=== PATIENT | female | born 1950 | race African-American/Black ===

== ENCOUNTER 2016-08-22 01:24 | Emergency (ER) | payer BC, OTHER ==
[~2016-08-22] VITALS: Ht 162.6 cm; Wt 83.9 kg
--- NOTE | ~2016-08-22 | EKG ---
[facility] [place] [address] ELECTROCARDIOGRAM REPORT Name: SVETLANA HOBBS Room #: [facility] M.R.#: [id number] Admission: Attend Phys: Discharge: Date of : 54 Report #: [id number] THIS REPORT FOR: //name// [facility] ED Test Date: 2016-08-22 Test Time: 02:01:30 Pat Name: SVETLANA HOBBS Department: Room: Gender: F Senior Java Architect: [email or web address] : 1950 Requested By: Lucas Soto Order Number: [id number] MD: Measurements Intervals [place] Rate: 63 P: 62 ID: 178 QRS: -29 QRSD: 109 T: -12 QT: 427 QTc: 438 Interpretive Statements Sinus rhythm Abnormal R-wave progression, late transition Probable left ventricular hypertrophy Borderline T abnormalities, inferior leads No previous ECG available for comparison [email or web address] By: 020 020 Epiphany MD Gm /EPI
[2016-08-22 02:03] LABS: ABSOLUTE NEUTROPHILS 3.4 thou/uL (1.4-8.2); BASOPHILS 1.1 % (0.0-2.0); EOSINOPHILS 5.3 % (0.0-3.0); HEMATOCRIT 38.2 % (37.0-47.0); HEMOGLOBIN 12.5 gm/dL (12.0-15.0); MCH 25.9 pg (26.0-34.0); MCHC 32.7 g/dL (28.0-37.0); MCV 79.1 fL (80.0-100.0); MONOCYTES 9.5 % (1.0-8.0); PLATELET COUNT 268 thou/uL (150-400); POLYS 44.1 % (36.0-66.0); RBC 4.84 mil/uL (4.20-5.00); RDW 13.6 % (10.5-14.5); WBC 7.8 thou/uL (4.0-11.0)
[2016-08-22 02:07] LABS: MANUAL DIFF NO
[2016-08-22 02:28] LABS: ALBUMIN 3.5 g/dL (3.4-5.0); ALKALINE PHOSPHATASE 99 U/L (46-116); ANION GAP 11 mmol/L (7-16); BUN 11 mg/dL (7-18); CALCIUM 9.2 mg/dL (8.5-10.1); CHLORIDE 103 mmol/L (98-107); CK-MB MASS 0.6 ng/mL (<0.5-3.6); CO2 28 mmol/L (21-32); CREATININE 0.9 mg/dL (0.6-1.3); GLUCOSE 152 mg/dL (70-99); MAGNESIUM 1.5 mg/dL (1.8-2.4); NT-PRO BRAIN NAT PEPTIDE 148 pg/mL (<300); POTASSIUM 3.7 mmol/L (3.5-5.1); SGOT 17 U/L (15-37); SGPT 26 U/L (30-65); SODIUM 142 mmol/L (136-145); TOTAL BILIRUBIN 0.4 mg/dL (<0.1-1.0); TOTAL PROTEIN 7.9 g/dL (6.4-8.2); TROPONIN-I < 0.04 ng/mL (<0.04-0.07)
[2016-08-22] MEDS ORDERED: VENTOLIN HFA 1818 GM INH (02:56)
[2016-08-22] MEDS ORDERED: AMOXICILLIN875 MG PO (02:56)
[2016-08-22 03:13] VITALS: BP 140/80
== END 2016-08-22 03:14 | disposition home or self-care (01) ==
LOC: ER 01:24
PROVIDERS: Emergency Medicine
DX: I10 Essential (primary) hypertension (principal); J42 Unspecified chronic bronchitis; R11.10 Vomiting, unspecified; R19.7 Diarrhea, unspecified; E11.9 Type 2 diabetes mellitus without complications; E78.5 Hyperlipidemia, unspecified

== ENCOUNTER 2016-08-28 20:36 | Emergency (ER) | payer BC, OTHER ==
[~2016-08-28] VITALS: Ht 165.1 cm; Wt 83.9 kg
--- NOTE | ~2016-08-28 | EKG ---
[place] [address] [facility] [place] [address] ELECTROCARDIOGRAM REPORT Name: MARY HOBBS Room #: [facility]#: [id number] Admission: 08/28/16 Attend Phys: Discharge: 08/29/16 Date of : 54 Report #: [id number] THIS REPORT FOR: //name// 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1950 Requested By: Sunday Adrian Order Number: [id number] MD: Alcon Cavanaugh Measurements Intervals [place] Rate: 96 P: 47 OR: 70 QRS: -31 QRSD: 95 T: 16 QT: 400 QTc: 506 Interpretive Statements Sinus rhythm Short OR interval Inferior infarct, old Prolonged QT interval Compared to ECG 08/22/2016 02:01:30 no significant change was found Electronically Signed On 08-29-2016 8:53:14 CDT by Alcon Cavanaugh [email or web address] <ELECTRONICALLY SIGNED> By: Alcon Cavanaugh MD, [facility] 08/29/16 0853 47 Alcon Cavanaugh MD, [facility] /EPI
[~2016-08-28 20:36] MED LIST: AMOXICILLIN875 MG PO; VENTOLIN HFA 1818 GM INH
[2016-08-28] MEDS ORDERED: TOPROL XL100 MG (21:00)
[2016-08-28] MEDS ORDERED: NORVASC10 MG PO (21:00)
[2016-08-28] MEDS ORDERED: PRINIVIL40 MG PO (21:00)
[2016-08-28] MEDS ORDERED: GLUCOPHAGE1000 MG PO (21:01)
[2016-08-28] MEDS ORDERED: ASPIR 8181 MG PO (21:01)
[2016-08-28] MEDS ORDERED: LIPITOR40 MG PO (21:01)
[2016-08-28 22:22] LABS: URINE BILIRUBIN NEGATIVE (Negative); URINE BLOOD TRACE (Negative); URINE COLOR YELLOW; URINE GLUCOSE-RANDOM* NEGATIVE (Negative); URINE KETONES NEGATIVE (Negative); URINE LEUKOCYTES-REFLEX TRACE (Negative); URINE PROTEIN (DIPSTICK) TRACE (Negative); URINE UROBILINOGEN 0.2 E.U./dl (0.2-1.0)
[2016-08-28 22:26] LABS: ABSOLUTE NEUTROPHILS 5.5 thou/uL (1.4-8.2); BASOPHILS 1.3 % (0.0-2.0); HEMATOCRIT 41.2 % (37.0-47.0); HEMOGLOBIN 13.6 gm/dL (12.0-15.0); LYMPHOCYTES 25.1 % (24.0-44.0); MANUAL DIFF NO; MCH 26.1 pg (26.0-34.0); MCHC 32.9 g/dL (28.0-37.0); MCV 79.2 fL (80.0-100.0); MONOCYTES 6.5 % (1.0-8.0); PLATELET COUNT 312 thou/uL (150-400); POLYS 64.1 % (36.0-66.0); RBC 5.21 mil/uL (4.20-5.00); RDW 13.6 % (10.5-14.5); WBC 8.5 thou/uL (4.0-11.0)
[2016-08-28 22:33] LABS: ANION GAP 12 mmol/L (7-16); BUN 9 mg/dL (7-18); CALCIUM 9.4 mg/dL (8.5-10.1); CHLORIDE 102 mmol/L (98-107); CO2 29 mmol/L (21-32); GLUCOSE 184 mg/dL (74-106); POTASSIUM 3.5 mmol/L (3.5-5.1); SODIUM 143 mmol/L (136-145)
[2016-08-28 22:36] LABS: CASTS None Seen /LPF (None Seen); CRYSTALS None Seen /LPF (None Seen); SQUAMOUS None Seen /LPF (0-3); URINE RBC 0-2 Rare /HPF (0-2)
[2016-08-28 22:37] LABS: TRANSITIONAL EPITHEL CELL 0-3 Few /LPF (None Seen); URINE WBC-REFLEX 0-5 Rare /HPF (0-5)
[2016-08-28 22:47] LABS: ALBUMIN 3.9 g/dL (3.4-5.0); ALKALINE PHOSPHATASE 113 U/L (46-116); CK-MB MASS < 0.5 ng/mL (<0.5-3.6); DIRECT BILIRUBIN < 0.1 mg/dL (<0.1-0.3); MAGNESIUM 1.4 mg/dL (1.8-2.4); NT-PRO BRAIN NAT PEPTIDE 28 pg/mL (<300); SGOT 19 U/L (15-37); SGPT 37 U/L (30-65); TOTAL BILIRUBIN 0.4 mg/dL (<0.1-1.0); TOTAL PROTEIN 8.3 g/dL (6.4-8.2); TROPONIN-I < 0.04 ng/mL (<0.04-0.07)
[2016-08-29] MEDS ORDERED: MAGOX 400400 MG PO (00:26)
[2016-08-29] MEDS ORDERED: ONDANSETRON HCL4 M2 PO (00:26)
[2016-08-29 00:34] VITALS: BP 142/83
== END 2016-08-29 00:35 | disposition home or self-care (01) ==
LOC: ER 20:36
PROVIDERS: Physician Assistant
DX: E11.9 Type 2 diabetes mellitus without complications (principal); I10 Essential (primary) hypertension; R07.9 Chest pain, unspecified; E83.42 Hypomagnesemia; E78.5 Hyperlipidemia, unspecified

== ENCOUNTER 2017-01-13 04:17 | Inpatient (IN) | payer BC, OTHER ==
[~2017-01-13] VITALS: Ht 165.1 cm; Wt 89.8 kg
[2017-01-13] VITALS (8 sets, daily range): BP systolic 145–226; BP diastolic 79–115
--- NOTE | ~2017-01-13 | EKG ---
[place] [address] [address] [facility] [place] [address] ELECTROCARDIOGRAM REPORT Name: MARY HOBBS Room #: 454-P [facility] ..#: [id number] Admission: 01/13/17 Attend Phys: Timothy Oh MD Discharge: Date of : 54 Report #: [id number] THIS REPORT FOR: //name// [facility] ED Test Date: 2017-01-13 Test Time: 04:53:38 Pat Name: MARY HOBBS Department: Room: [facility] Gender: F Counter Waitress/Waiter: [email or web address] : 1950 Requested By: Luba Bloom Order Number: [id number] MD: Alcon Cavanaugh Measurements Intervals [place] Rate: 60 P: 59 DE: 177 QRS: -31 QRSD: 98 T: 3 QT: 447 QTc: 447 Interpretive Statements Sinus rhythm Abnormal R-wave progression, late transition Nonspecific T wave abnormality Compared to ECG 08/28/2016 21:48:10 No significant change was found Electronically Signed On 01-14-2017 12:04:37 CDT by Alcon Cavanaugh [email or web address] <ELECTRONICALLY SIGNED> By: Alcon Cavanaugh MD, [facility] 01/14/17 [id number] Alcon Cavanaugh MD, [facility] /EPI
[~2017-01-13 04:17] MED LIST changes: +ASPIR 8181 MG PO; +GLUCOPHAGE1000 MG PO; +LIPITOR40 MG PO; +MAGOX 400400 MG PO; +NORVASC10 MG PO; +ONDANSETRON HCL4 M2 PO; +PRINIVIL40 MG PO; +TOPROL XL100 MG PO
[2017-01-13] MEDS ORDERED: HYDROCHLOROTH12.5 M1 PO (04:31)
[2017-01-13 05:59] LABS: ABSOLUTE NEUTROPHILS 3.3 thou/uL (1.4-8.2); BASOPHILS 1.4 % (0.0-2.0); EOSINOPHILS 4.3 % (0.0-3.0); HEMATOCRIT 40.4 % (37.0-47.0); HEMOGLOBIN 13.2 gm/dL (12.0-15.0); LYMPHOCYTES 35.7 % (24.0-44.0); MCH 26.1 pg (26.0-34.0); MCHC 32.6 g/dL (28.0-37.0); MCV 79.9 fL (80.0-100.0); MONOCYTES 7.7 % (1.0-8.0); PLATELET COUNT 253 thou/uL (150-400); POLYS 50.9 % (36.0-66.0); RBC 5.05 mil/uL (4.20-5.00); RDW 13.9 % (10.5-14.5); WBC 6.6 thou/uL (4.0-11.0)
[2017-01-13 06:00] LABS: MANUAL DIFF NO
[2017-01-13 06:05] LABS: ANION GAP 7 mmol/L (7-16); BUN 11 mg/dL (7-18); CALCIUM 9.4 mg/dL (8.5-10.1); CHLORIDE 104 mmol/L (98-107); CO2 31 mmol/L (21-32); CREATININE 1.1 mg/dL (0.6-1.0); GLUCOSE 127 mg/dL (74-106); POTASSIUM 3.5 mmol/L (3.5-5.1); SODIUM 142 mmol/L (136-145)
[2017-01-13 06:14] LABS: TROPONIN-I < 0.04 ng/mL (<0.04-0.07)
[2017-01-14 04:09] VITALS: BP 160/95
[2017-01-14 04:39] LABS: HEMOGLOBIN 12.4 gm/dL (12.0-15.0); MCH 25.7 pg (26.0-34.0); MCHC 32.5 g/dL (28.0-37.0); MCV 79.1 fL (80.0-100.0); RBC 4.81 mil/uL (4.20-5.00); RDW 13.9 % (10.5-14.5); WBC 8.9 thou/uL (4.0-11.0)
[2017-01-14 04:47] LABS: CALCIUM 9.5 mg/dL (8.5-10.1); CREATININE 1.1 mg/dL (0.6-1.0); POTASSIUM 3.5 mmol/L (3.5-5.1)
[2017-01-14 07:43] VITALS: BP 175/99
[2017-01-14 11:09] VITALS: BP 155/95
[2017-01-14] MEDS ORDERED: NORVASC10 MG PO (11:42)
[2017-01-14] MEDS ORDERED: LISINOPRIL40 MG PO (11:43)
[2017-01-14 12:03] VITALS: BP 155/95
== END 2017-01-14 14:05 | disposition home or self-care (01) | DRG 305 ==
LOC: ER 04:17 → EROBS 07:15 → 4W 07:15
PROVIDERS: Emergency Medicine; Hospitalist
DX: I16.0 Hypertensive urgency (principal); E11.9 Type 2 diabetes mellitus without complications; E78.5 Hyperlipidemia, unspecified; I10 Essential (primary) hypertension; Z79.4 Long term (current) use of insulin; Z79.899 Other long term (current) drug therapy
CPT/HCPCS: 10045